=== PATIENT | female | born 1980 | race African-American/Black ===

== ENCOUNTER 2024-08-18 11:13 | Emergency (ER) | payer SELFPAY ==
[~2024-08-18] VITALS: Ht 165.1 cm; Wt 70.0 kg
[2024-08-18 11:18] VITALS: BP 124/84; PULSE 88; RESP 20; TEMP 36.7; O2SAT 99
[2024-08-18 16:46] LABS: CHLORIDE 113 mEq/L (98-107); POTASSIUM 3.7 mEq/L (3.5-5.1); SODIUM 147 mEq/L (136-145)
[2024-08-18 16:47] LABS: CARBON DIOXIDE 21 mEq/L (21-32)
[2024-08-18 16:48] LABS: CALCIUM 8.5 mg/dL (8.7-10.4)
[2024-08-18 16:52] LABS: BASOPHILS % 0.8 % (0.0-2.0); CREATININE 0.6 mg/dL (0.6-1.0); EOSINOPHILS % 1.1 % (0.0-5.0); GLUCOSE 91 mg/dL (70-105); HEMATOCRIT. 38.5 % (36.0-48.0); HEMOGLOBIN. 12.3 g/dL (12.0-16.0); LYMPHOCYTES % 47.7 % (20.0-50.0); MEAN CORPUSCULAR HEMOGLOBIN 28.2 pg (28.0-32.0); MEAN CORPUSCULAR VOLUME 88.2 fL (81.0-99.0); MEAN PLATELET VOLUME 8.7 fl (7.4-10.4); MONOCYTES % 3.1 % (2.0-8.0); NEUTROPHILS % 47.3 % (40.0-76.0); PLATELET 435 x1000/uL (130-400); RED BLOOD CELL COUNT 4.36 mill/uL (4.2-5.4); UREA NITROGEN BLOOD 6 mg/dL (9-23); WHITE BLOOD COUNT 6.5 x1000/uL (4.5-11.0)
[2024-08-18 17:12] LABS: ETHANOL BLOOD 412 mg/dL (<10)
== END 2024-08-18 16:58 | disposition home or self-care (01) ==
LOC: ER 11:32
DX: F10.129 Alcohol abuse with intoxication, unspecified (principal); Y90.9 Presence of alcohol in blood, level not specified
CPT/HCPCS: 80048; 80320; 85025; 36415; 99283; Z7610 ×3; G0480